=== PATIENT | female | born 1985 | race Caucasian/White ===

== ENCOUNTER 2018-01-04 09:34 | Inpatient (IN) | payer OTHER ==
[~2018-01-04] VITALS: Ht 152.4 cm; Wt 2.3 kg
[2018-01-04] MEDS ORDERED: PRENATAL TABLE1 EAC2 PO (11:27)
== END 2018-01-08 12:15 | disposition home or self-care (01) | DRG 765 ==
LOC: LDR 09:34 → OB/GYN 09:34 → O/R 01-05 13:01 → OB/GYN 01-05 13:20
PROVIDERS: Obstetrics & Gynecology
PROC: 4A1HXCZ Monitoring of Products of Conception, Cardiac Rate, External Approach (ICD-10-PCS; 2018-01-04)
PROC: 4A033R1 Measurement of Arterial Saturation, Peripheral, Percutaneous Approach (ICD-10-PCS; 2018-01-05)
PROC: 10D00Z1 Extraction of Products of Conception, Low, Open Approach (ICD-10-PCS; principal; 2018-01-05 10:00)
DX: O42.913 Preterm premature rupture of membranes, unspecified as to length of time between rupture and onset of labor, third trimester (principal); O60.14X0 Preterm labor third trimester with preterm delivery third trimester, not applicable or unspecified; O69.81X0 Labor and delivery complicated by cord around neck, without compression, not applicable or unspecified; Z3A.34 34 weeks gestation of pregnancy; Z37.0 Single live birth